=== PATIENT | female | born 1935 | race Caucasian/White ===

== ENCOUNTER 2018-06-07 14:13 | Emergency (ER) | payer OTHER ==
[~2018-06-07] VITALS: Ht 165.1 cm; Wt 73.3 kg
[~2018-06-07 14:13] MED LIST: ASPIRIN81 M2 PO; KEFLEX500 MG PO; LIPITOR10 MG PO; LIPITOR40 MG PO; LISINOPRIL2.5 MG PO; OMEPRAZOLE20 MG PO; PRILOSEC20 MG PO; ZESTRIL2.5 MG PO
[2018-06-07 15:28] VITALS: BP 174/77
== END 2018-06-07 15:29 | disposition home or self-care (01) ==
LOC: EME 14:13
DX: L25.9 Unspecified contact dermatitis, unspecified cause (principal); E78.5 Hyperlipidemia, unspecified; I10 Essential (primary) hypertension; K21.9 Gastro-esophageal reflux disease without esophagitis; I25.2 Old myocardial infarction; Z79.82 Long term (current) use of aspirin
CPT/HCPCS: 99281; 99284